=== PATIENT | male | born 1970 | race Two or more races ===

== ENCOUNTER 2016-12-17 12:13 | Emergency (ER) | payer SELFPAY ==
[~2016-12-17] VITALS: Ht 167.6 cm; Wt 81.6 kg
[2016-12-17 12:30] VITALS: BP 136/91
[2016-12-17] MEDS ORDERED: BUPIVACAINE 0.5% 50 ML VIAL. IJ ONE (12:45)
[2016-12-17] MEDS ORDERED: DIPHTH,PERTUSS(ACELL),TET TOX 0.5 ML DISP.SYRIN. VAX IM ONE (12:45)
[2016-12-17] MEDS ORDERED: MORPHINE SULFATE 10 MG/ML VIAL. IM ONE (12:45)
[2016-12-17] MEDS ORDERED: fentaNYL PF VIAL 100 MCG/2 ML VIAL IV ONE (13:15)
--- NOTE | 2016-12-17 13:37 | RAD ---
Examination: 3 views of the left foot History: History of injury to the left upper Comparison: None available Findings: The alignment of the metacarpophalangeal joints, interphalangeal joint grossly appears unremarkable. There is no obvious acute fracture identified. Probable mild soft tissue swelling identified in the great toe region. Impression: 1. No acute osseous findings. 2. Probable mild soft tissue swelling identified in the great toe region.
[2016-12-17] MEDS ORDERED: CEPH500T PO (15:07)
[2016-12-17] MEDS ORDERED: HYDR-971 PO (15:07)
[2016-12-17] MEDS ORDERED: NAPR500T8 PO (15:07)
--- NOTE | 2016-12-17 15:07 | PHYS DOC ---
Past Medical History Past Medical History: No Pertinent History Past Surgical History: No Surgical History Alcohol Use: None Drug Use: None Adult General Chief Complaint Chief Complaint: FOOT INJURY PAIN HPI HPI Patient is a 46 year old male who presents with left great toe partial nail avulsion. Patient states 1000 pound rock fell on his toe. Review of Systems Review of Systems Constitutional: Denies fever or chills [] Eyes: Denies change in visual acuity, redness, or eye pain [] Musculoskeletal: Denies back pain or joint pain [] Integument: left great toe partial nail avulsion Neurologic: Denies headache, focal weakness or sensory changes [] Endocrine: Denies polyuria or polydipsia [] Current Medications Current Medications Current Medications Medications (Trade) Dose Ordered Sig/Shama Start Time Stop Time Status Last Admin Dose Admin Bupivacaine HCl (Marcaine 0.5%) 50 ml 1X ONCE 12/17/16 12:45 12/17/16 12:46 DC 12/17/16 12:54 50 ML Diphtheria/ Tetanus/Acell Pertussis (Boostrix) 0.5 ml ONCE ONCE 12/17/16 12:45 12/17/16 12:46 DC 12/17/16 13:11 0.5 ML Fentanyl Citrate (Fentanyl 2ml Vial) 50 mcg 1X ONCE 12/17/16 13:15 12/17/16 13:16 Cancel Morphine Sulfate 5 mg 1X ONCE 12/17/16 12:45 12/17/16 12:46 DC 12/17/16 12:53 5 MG Allergies Allergies Allergies Coded Allergies Type Severity Reaction Last Updated Verified No Known Drug Allergies 12/17/16 No Physical Exam Physical Exam Constitutional: Well developed, well nourished, no acute distress, non-toxic appearance. [] HENT: Normocephalic, atraumatic, bilateral external ears normal, oropharynx moist, no oral exudates, nose normal. [] Eyes: PERRLA, EOMI, conjunctiva normal, no discharge. [] Skin: Left great toe with a partial nail avulsion at the base of the toe. The nail still attached on the medial and lateral aspects. Adequate sensation to the left great toe. +2 left pedal pulse. Cap refill less than 2 seconds the left lower extremity. Limited range of motion to the left great toe due to pain. Back: No tenderness, no CVA tenderness. [] Extremities: No tenderness, no cyanosis, no clubbing, ROM intact, no edema. [] Neurologic: Alert and oriented X 3, normal motor function, normal sensory function, no focal deficits noted. [] Psychologic: Affect normal, judgement normal, mood normal. [] Current Patient Data Vital Signs Vital Signs Date Time Temp Pulse Resp B/P (MAP) Pulse Ox O2 Delivery O2 Flow Rate FiO2 12/17/16 12:53 16 12/17/16 12:30 98.1 100 95 Room Air 98.1 EKG EKG [] Radiology/Procedures Radiology/Procedures []PROCEDURE: FOOT LEFT 3V Examination: 3 views of the left foot History: History of injury to the left upper Comparison: None available Findings: The alignment of the metacarpophalangeal joints, interphalangeal joint grossly appears unremarkable. There is no obvious acute fracture identified. Probable mild soft tissue swelling identified in the great toe region. Impression: 1. No acute osseous findings. 2. Probable mild soft tissue swelling identified in the great toe region. Indication: Left great toe partial nail avulsion Procedure: The patient was placed in the appropriate position and 0.5% of bupivacaine was used to perform a digital block to the left great toe successfully. The area was then cleaned with 500 ML of normal saline and 30 mL of Betadine, then they'll was put back in place and sutured at the base with 3 interrupted sutures using 3. 0 Vicryl. The toe was covered with nonstick dressing. Total repaired wound length: Approximately 3 cm long Other Items:none The patient tolerated the procedure well Complications: none DICTATED and SIGNED BY: BORA MILIAN MD DATE: 12/17/16 1910 CC: GONZALO BRUCE MD; MICHAEL FELIZ APRN; NO PCP ~ Course & Med Decision Making Course & Med Decision Making Pertinent Labs and Imaging studies reviewed. (See chart for details) Patient has partial nail avulsion of the left great toe after 1000 pound rock fell on his toe, x-rays of the left foot interpreted by radiologist were negative for any acute findings. Nail was put back in place and secured with Vicryl. Tetanus was updated. Patient was discharged with instructions to follow- up with his own PCP. He was provided wound care instructions as well as return precautions. Dragon Disclaimer Dragon Disclaimer This electronic medical record was generated, in whole or in part, using a voice recognition dictation system. Departure Departure Impression: Primary Impression: Nail avulsion of toe Disposition: HOME, SELF-CARE Condition: STABLE Referrals: NO PCP (PCP) Follow-up with your own doctor as needed Patient Instructions: Nail Avulsion Injury Additional Instructions: You have a partial nail avulsion to the left great toe. We were able to put the nail back. We hope it stays in and the new nail grows. This is not guaranteed. We put you on antibiotics for 7 days. Ensure you complete them. Take pain medicine as needed for pain. Keep the affected toe clean and dry. Scripts Cephalexin (CEPHALEXIN) 500 Mg Tablet 1 TAB PO QID, #40 TAB Prov: MICHAEL FELIZ APRN 12/17/16 Naproxen (NAPROXEN) 500 Mg Tablet.dr 1 TAB PO BID, #60 TAB 2 Refills Prov: MICHAEL FELIZ APRN 12/17/16 Hydrocodone/Apap 5-325 (NORCO 5-325 TABLET) 1 Each Tablet 1-2 TAB PO Q4-6HRS, #20 TAB Prov: MICHAEL FELIZ APRN 12/17/16 Problem Qualifiers Primary Impression: Nail avulsion of toe Encounter type: initial encounter Qualified Codes: S91.209A - Unspecified open wound of unspecified toe(s) with damage to nail, initial encounter MICHAEL FELIZ APRN December 17, 2016 15:07
== END 2016-12-17 15:20 | disposition home or self-care (01) ==
LOC: ER 13:02
DX: S91.202A Unspecified open wound of left great toe with damage to nail, initial encounter (principal); W22.8XXA Striking against or struck by other objects, initial encounter; Y93.89 Activity, other specified; Y92.89 Other specified places as the place of occurrence of the external cause; Y99.8 Other external cause status
CPT/HCPCS: 11730; 73630; 90471; 90715; 96372; 99284; J2270; J3490